=== PATIENT | female | born 1955 | race Caucasian/White ===

== ENCOUNTER 2016-12-22 | Outpatient (CLI) | payer BC | END 2016-12-22 15:33 | disposition home or self-care (01) | DX: R00.2 Palpitations (principal) ==

== ENCOUNTER 2017-01-12 12:37 | Outpatient (CLI) | payer BC | END 2017-01-12 12:38 | disposition home or self-care (01) | DX: R07.9 Chest pain, unspecified (principal); R00.2 Palpitations; R06.02 Shortness of breath; E78.5 Hyperlipidemia, unspecified ==

== ENCOUNTER 2021-02-08 15:49 | Emergency (ER) | payer BC ==
--- OUTSIDE RECORDS SUMMARY | 2021-02-08 15:53 | EXTERNAL MEDICAL SUMMARY RPT | Continuity of Care Document ---
:1955 Demographics Phone Unavailable Preferred Language Unknown Marital Status Unknown Nondenominational Affiliation Unknown Race Unknown Ethnic Group Unknown Author Organization [place] Address [address] [phone] Phone Care Team Providers Name Role Phone PA-C Unavailable Unavailable Problems date description facility 20210205 Acute constipation All 20210205 Constipation, unspecified All 20210205 Never smoker All 20210205 Tobacco smoking status [facility] All 20210205 Tobacco use and exposure All Vital Signs date measurement value source 20210205 BMI 21.40 kg/m2 20210205 BP_diastolic 78 mm[Hg] 04426177 BP_systolic 120 mm[Hg] 20210205 heart_rate 88 /min 20210205 height_metric 163.83 cm 20210205 height_standard 64.5 in 20210205 respiration_rate 14 /min 20210205 temperature_metric 37.17 C 20210205 temperature_standard 98.9 F 20210205 weight_metric 57.24 kg 74998000 weight_standard 126.2 lb Social History date description facility [id number]
[2021-02-08] MEDS ORDERED: SODIUM CHLORIDE 0.9% 1,000 ML IV STA (16:31)
--- NOTE | 2021-02-08 16:32 | ED Physician Documentation ---
PD HPI ABD PAIN - Stated complaint Stated Complaint: CONSTIPATION - Chief complaint Chief Complaint: Abd Pain - History obtained from History obtained from: Patient - Additional information Additional information: 65-year-old woman with no past medical history. Never had a colonoscopy. For unclear reasons, without medication or dietary changes has had obstipation for the last 8 days. Initially tried a variety of fiber supplements without improvement. Subsequently over the last couple of days has tried half a bottle of magnesium citrate and some MiraLAX, still without relief. She also did a fleets enema at home without relief. She feels like it is just stuck. She has mild nausea but no vomiting. No fevers. Review of Systems Ten Systems: 10 systems reviewed and negative Constitutional: reports: Reviewed and negative Eyes: reports: Reviewed and negative Throat: reports: Reviewed and negative Cardiac: reports: Reviewed and negative Respiratory: reports: Reviewed and negative PD PAST MEDICAL HISTORY - Past Surgical History Past Surgical History: No - Present Medications Home Medications: Ambulatory Orders Medication Instructions Recorded Confirmed polyethylene glycoL 3350 [Miralax] 17 gm PO DAILY PRN #1 bottle 02/08/21 - Allergies Allergies/Adverse Reactions: Allergies Allergy/AdvReac Type Severity Reaction Status Date / Time Sulfa (Sulfonamide Allergy Itching Verified 02/08/21 15:56 Antibiotics) - Social History Does the pt smoke?: Yes Smoking Status: Current every day smoker Does the pt drink ETOH?: Yes Does the pt have substance abuse?: No PD ED PE NORMAL - Vitals Vital signs reviewed: Yes - General General: Alert and oriented X 3, No acute distress - Cardiac Cardiac: RRR, No murmur - Respiratory Respiratory: No respiratory distress, Clear bilaterally - Abdomen Abdomen: Other (Slightly hyperactive active bowel tones, slight distention, soft nontender.) - Rectal Rectal: Other (Done with Celia HARVEY present And chaperoning. Scant purulent No fecal impaction within fingers reach) - Derm Derm: Normal color, Warm and dry - Extremities Extremities: No edema, No calf tenderness / cord - Neuro Neuro: Alert and oriented X 3, Normal speech Results - Vitals Vitals: Vital Signs - 24 hr 02/08/21 02/08/21 15:56 18:29 Temperature 36.6 C Heart Rate 80 83 Respiratory 16 16 Rate Blood Pressure 148/71 H 141/79 H O2 Saturation 98 100 Oxygen O2 Source Room air - Labs Labs: Laboratory Tests 02/08/21 02/08/21 16:48 16:48 WBC 5.7 RBC 3.82 L Hgb 13.0 Hct 38.1 MCV 99.7 H MCH 34.0 H MCHC 34.1 RDW 11.5 L Plt Count 274 MPV 9.5 Neut # (Auto) 3.4 Lymph # (Auto) 1.5 [place] # (Auto) 0.6 Eos # (Auto) 0.2 Baso # (Auto) 0.1 Absolute Nucleated RBC 0.00 Nucleated RBC % 0.0 Sodium 140 Potassium 4.5 Chloride 106 Carbon Dioxide 22 Anion Gap 12.0 BUN 11 Creatinine 0.6 Estimated GFR (MDRD) 101 Glucose 87 Calcium 9.8 Total Bilirubin 1.5 H AST 34 ALT 33 Alkaline Phosphatase 102 Total Protein 7.4 Albumin 5.0 Globulin 2.4 Albumin/Globulin Ratio 2.1 PD MEDICAL DECISION MAKING - ED course ED course: 65-year-old woman presents with constipation despite taking some but not a lot of laxatives at home. Benign belly. No fecal impaction on exam. Because of her smoking history and age and no clear cause of this a CT was done without pertinent positive findings but the incidental findings were discussed with her. Departure - Departure Disposition: 01 Home, Self Care Clinical Impression: Constipation Qualifiers: Constipation type: slow transit constipation Qualified Code(s): K59.01 - Slow transit constipation Abdominal pain Qualifiers: Abdominal location: generalized Qualified Code(s): R10.84 - Generalized abdominal pain Condition: Good Record reviewed to determine appropriate education?: Yes Instructions: ED Constipation Prescriptions: polyethylene glycoL 3350 [Miralax] 17 gm PO DAILY PRN #1 bottle PRN Reason: Constipation Comments: I suspect with the medications we gave you you should be well cleaned out. After that you can just take MiraLAX as needed to keep from getting too constipated. Drink plenty of fluids. Return if worsening or if not better over the next couple of days. Talk with your doctor about a referral for routine colonoscopy.
[2021-02-08] MEDS ORDERED: IOPAMIDOL-300 100 ML VIAL ONE (16:37)
--- OUTSIDE RECORDS SUMMARY | 2021-02-08 16:38 | EXTERNAL MEDICAL SUMMARY RPT | Continuity of Care Document ---
:1955 Demographics Phone Unavailable Preferred Language Unknown Marital Status Unknown Caodaism Affiliation Unknown Race Unknown Ethnic Group Unknown Author Organization [place] Address [address] [phone] Phone Care Team Providers Name Role Phone PA-C Unavailable Unavailable Problems date description facility 20210205 Acute constipation All 20210205 Constipation, unspecified All 20210205 Never smoker All 20210205 Tobacco smoking status NHIS All 20210205 Tobacco use and exposure All Vital Signs date measurement value source 20210205 BMI 21.40 kg/m2 20210205 BP_diastolic 78 mm[Hg] 32999124 BP_systolic 120 mm[Hg] 20210205 heart_rate 88 /min 20210205 height_metric 163.83 cm 20210205 height_standard 64.5 in 20210205 respiration_rate 14 /min 20210205 temperature_metric 37.17 C 20210205 temperature_standard 98.9 F 20210205 weight_metric 57.24 kg 20210205 weight_standard 126.2 lb Social History date description facility [id number]
[2021-02-08 17:06] LABS: BASOPHILS # (AUTO) 0.1 10^3/uL (0.0-0.1); BASOPHILS % (AUTO) 1.6 %; EOSINOPHILS # (AUTO) 0.2 10^3/uL (0.0-0.7); HCT - HEMATOCRIT 38.1 % (37.0-47.0); LYMPHOCYTES # (AUTO) 1.5 10^3/uL (1.5-3.5); LYMPHOCYTES % (AUTO) 25.3 %; MEAN CORPUSCULAR HGB CONC 34.1 g/dL (32.0-36.0); MEAN CORPUSCULAR VOLUME 99.7 fL (81.0-99.0); MEAN PLATELET VOLUME 9.5 fL (7.9-10.8); MONOCYTES # (AUTO) 0.6 10^3/uL (0.0-1.0); MONOCYTES % (AUTO) 9.9 %; NEUTROPHILS # (AUTO) 3.4 10^3/uL (1.5-6.6); PLT - PLATELET COUNT 274 10^3/uL (130-450); RED BLOOD COUNT 3.82 10^6/uL (4.20-5.40); RED CELL DISTRIBUTION WIDTH 11.5 % (12.0-15.0); WHITE BLOOD COUNT 5.7 x10^3/uL (4.8-10.8)
[2021-02-08 17:16] LABS: ALBUMIN/GLOBULIN RATIO 2.1 (1.0-2.2); BILIRUBIN,TOTAL 1.5 mg/dL (0.2-1.0); CALCIUM 9.8 mg/dL (8.5-10.3); CREATININE 0.6 mg/dL (0.4-1.0); POTASSIUM 4.5 mmol/L (3.5-5.0); TOTAL PROTEIN 7.4 g/dL (6.7-8.2)
[2021-02-08] MEDS ORDERED: IOPAMIDOL-300 100 ML VIAL IVP ONE (18:12)
--- NOTE | 2021-02-08 18:24 | CT Report ---
PROCEDURE: Abdomen/Pelvis W INDICATIONS: IV only, abdominal pain CONTRAST: IV CONTRAST: Isovue 300 ml: 100 PO CONTRAST: *NO PO CONTRAST TECHNIQUE: After the administration of IV contrast, 5 mm thick sections acquired from the diaphragms to the symp hysis. 5 mm thick coronal and sagittal reformats were acquired. For radiation dose reduction, the f ollowing was used: automated exposure control, adjustment of mA and/or kV according to patient size. COMPARISON: None. FINDINGS: Image quality: Excellent. ABDOMEN: Lung bases: Lung bases are clear. Heart size is normal. Solid organs: Liver and spleen are normal in size and enhancement. Gallbladder is within normal santana its Biliary system is non dilated. Pancreas enhances normally. No adrenal nodules. Kidneys demons trate normal size and enhancement, without hydronephrosis. A nonobstructing 6 mm calculus within the inferior pole left kidney anteriorly is present. Peritoneum and bowel: Bowel loops demonstrate normal wall thickness and caliber. No free fluid or a ir. Normal appendix. Nodes and vessels: No retroperitoneal or mesenteric adenopathy by size criteria. Aorta and inferior vena cava are normal in size. Miscellaneous: No ventral hernias. PELVIS: Genitourinary: Bladder wall thickness is normal. Miscellaneous: No inguinal hernias or adenopathy. Bones: No suspicious bony lesions. No vertebral body compression fractures. IMPRESSION: 1. No acute process. 2. Normal appendix. 3. Nonobstructing left renal calculus. Reviewed by: Jf Oakes MD on 02/08/2021 6:23 PM PDT Approved by: Jf Oakes MD on 02/08/2021 6:23 PM PDT Station ID: [id number]
[2021-02-08 18:30] VITALS: BP 141/79
[2021-02-08] MEDS ORDERED: bisacodyL 5 MG TABLET PO STA (18:33)
[2021-02-08] MEDS ORDERED: LACTULOSE 10 GM /15 ML UDC PO STA (18:33)
[2021-02-08] MEDS ORDERED: MAGNESIUM CITRATE 296 ML BOTTLE PO STA (18:33)
== END 2021-02-08 18:50 | disposition home or self-care (01) ==
LOC: ED 15:49
DX: K59.01 Slow transit constipation (principal); R10.84 Generalized abdominal pain; F17.200 Nicotine dependence, unspecified, uncomplicated
CPT/HCPCS: 36415; 74177; 80053; 85025; 99284; A9270; Q9967

== ENCOUNTER 2021-02-17 13:39 | Emergency (ER) | payer BC ==
--- OUTSIDE RECORDS SUMMARY | 2021-02-17 13:44 | EXTERNAL MEDICAL SUMMARY RPT | Continuity of Care Document ---
:1955 Demographics Phone Unavailable Preferred Language Unknown Marital Status Unknown Orthodoxy Affiliation Unknown Race Unknown Ethnic Group Unknown Author Organization [place] Address [address] [phone] Phone Care Team Providers Name Role Phone David FERRIS, Unavailable Unavailable Booker, Provider Unavailable Unavailable Problems date description facility 20210205 Acute constipation All 20210205 Constipation, unspecified All 20210205 Never smoker All 20210205 Tobacco smoking status NHIS All 20210205 Tobacco use and exposure All Vital Signs date measurement value source 20210205 BMI 21.40 kg/m2 20210205 BP_diastolic 78 mm[Hg] 86626275 BP_systolic 120 mm[Hg] 77036376 heart_rate 88 /min 75194531 height_metric 163.83 cm 41677703 height_standard 64.5 in 68354066 respiration_rate 14 /min 04405487 temperature_metric 37.17 C 20210205 temperature_standard 98.9 F 06885431 weight_metric 57.24 kg 87278923 weight_standard 126.2 lb 66591214 BMI 21.40 kg/m2 90909228 BP_diastolic 78 mm[Hg] 01471513 BP_systolic 120 mm[Hg] 41755295 heart_rate 88 /min 23685649 height_metric 163.83 cm 53908288 height_standard 64.5 in 86664374 respiration_rate 14 /min 70911064 temperature_metric 37.17 C 46738047 temperature_standard 98.9 F 16457852 weight_metric 57.24 kg 96302545 weight_standard 126.2 lb Social History date description facility [id number]
--- OUTSIDE RECORDS SUMMARY | 2021-02-17 13:50 | EXTERNAL MEDICAL SUMMARY RPT | Continuity of Care Document ---
:1955 Demographics Phone Unavailable Preferred Language Unknown Marital Status Unknown Protestant Affiliation Unknown Race Unknown Ethnic Group Unknown Author Organization [place] Address [address] [phone] Phone Care Team Providers Name Role Phone David FERRIS, Unavailable Unavailable Booker, Provider Unavailable Unavailable Problems date description facility 20210205 Acute constipation All 20210205 Constipation, unspecified All 20210205 Never smoker All 20210205 Tobacco smoking status NHIS All 20210205 Tobacco use and exposure All Vital Signs date measurement value source 20210205 BMI 21.40 kg/m2 20210205 BP_diastolic 78 mm[Hg] 33563765 BP_systolic 120 mm[Hg] 88010320 heart_rate 88 /min 27034808 height_metric 163.83 cm 89417782 height_standard 64.5 in 28838449 respiration_rate 14 /min 14947191 temperature_metric 37.17 C 20210205 temperature_standard 98.9 F 66723945 weight_metric 57.24 kg 07303786 weight_standard 126.2 lb 05586920 BMI 21.40 kg/m2 40642365 BP_diastolic 78 mm[Hg] 80460181 BP_systolic 120 mm[Hg] 58359551 heart_rate 88 /min 15109839 height_metric 163.83 cm 30841847 height_standard 64.5 in 81735090 respiration_rate 14 /min 15431306 temperature_metric 37.17 C 65083877 temperature_standard 98.9 F 42381933 weight_metric 57.24 kg 28583547 weight_standard 126.2 lb Social History date description facility [id number]+0000
--- NOTE | 2021-02-17 14:10 | ED Physician Documentation ---
History of Present Illness - Stated complaint Stated Complaint: CONSTIPATION - Chief complaint Chief Complaint: Abd Pain - Additonal information Additional information: 65-year-old female presents to the emergency department for concerns of c onstipation. She reported that for about the last 18 days that she has been constipated. She was seen by my colleague here 9 days ago and found to have a nonimpacted rectal vault. Given her age and previous lack of history of colonoscopy a CT of the abdomen was completed at the last visit that showed no concerning findings. Since discharge the patient has limited her diet to very bland soft foods without a lot of fiber. She is using magnesium citrate every 2 days to promote bowel movements as well as daily MiraLAX. She is having bowel movements but describes them as very small soft and frosting like. She is currently scheduled to have a colonoscopy on 09 March. Patient denies fevers, black or bloody stools, vomiting. She reports that she just feels something is blocked in her and would like to know what. Review of Systems Constitutional: denies: Chills Eyes: reports: Reviewed and negative Ears: reports: Reviewed and negative Nose: reports: Reviewed and negative Throat: reports: Reviewed and negative Cardiac: reports: Reviewed and negative Respiratory: reports: Reviewed and negative GI: reports: Abdominal Pain, Constipation. denies: Nausea, Vomiting, Diarrhea, Bloody / black stool : denies: Dysuria, Frequency, Hesitancy Skin: denies: Rash, Lesions Musculoskeletal: denies: Neck pain PD PAST MEDICAL HISTORY - Past Medical History Past Medical History: Yes Neuro: None - Past Surgical History Past Surgical History: No - Present Medications Home Medications: Ambulatory Orders Medication Instructions Recorded Confirmed polyethylene glycoL 3350 [Miralax] 17 gm PO DAILY PRN #1 bottle 02/08/21 02/17/21 polyethylene glycoL 3350 [Miralax] 17 gm PO DAILY PRN #1 bottle 02/17/21 - Allergies Allergies/Adverse Reactions: Allergies Allergy/AdvReac Type Severity Reaction Status Date / Time Sulfa (Sulfonamide Allergy Itching Verified 02/17/21 13:51 Antibiotics) - Social History Does the pt smoke?: Yes Smoking Status: Current every day smoker Does the pt drink ETOH?: Yes ETOH Use: Wine Does the pt have substance abuse?: No - Immunizations Immunizations are current?: No - POLST Patient has POLST: No PD ED PE EXPANDED - General General: Alert, No acute distress, Well developed/nourished - Cardiac Cardiac: Regular Rate, Radial strong equal, Pedal strong equal, Cap refill < 2 sec - Respiratory Respiratory: Clear to ausultation dalila. No: Distress, Labored - Abdomen Abdomen: Normal Bowel sounds (Soft nontender nonfocal abdomen.). No: Tender to palpation - Rectal Rectal: Hemorrhoid, Normal Tone, Forest Fire Control Officer present, Other (Small amount of soft stool in the rectal vault brown. Nontender exam no masses noted. Thrombosed external hemorrhoids are present.). No: Mass - Back Back: Normal exam - Derm Derm: Normal color, Warm and dry. No: Rash - Neuro Neuro: Alert and Oriented X 3, CNII-XII intact - GCS Eye Opening: Spontaneous Motor: Obeys Commands Verbal: Oriented Total: 15 Results - Vitals Vitals: Vital Signs - 24 hr 02/17/21 13:45 Temperature 36.8 C Heart Rate 78 Respiratory 16 Rate Blood Pressure 136/84 H O2 Saturation 100 Oxygen O2 Source Room air - Labs Labs: Laboratory Tests 02/17/21 02/17/21 14:09 14:09 WBC 5.0 RBC 3.91 L Hgb 13.1 Hct 38.1 MCV 97.4 MCH 33.5 H MCHC 34.4 RDW 11.3 L Plt Count 249 MPV 9.4 Neut # (Auto) 3.1 Lymph # (Auto) 1.1 L [place] # (Auto) 0.5 Eos # (Auto) 0.2 Baso # (Auto) 0.1 Absolute Nucleated RBC 0.00 Nucleated RBC % 0.0 Sodium 134 L Potassium 4.3 Chloride 100 L Carbon Dioxide 21 Anion Gap 13.0 BUN 12 Creatinine 0.5 Estimated GFR (MDRD) 124 Glucose 111 H Calcium 9.9 Total Bilirubin 1.1 H AST 55 H ALT 60 Alkaline Phosphatase 84 Total Protein 7.3 Albumin 5.0 Globulin 2.3 Albumin/Globulin Ratio 2.2 Lipase 30 - Rads (name of study) Abd XR Radiology: Final report received (Bowel gas pattern is normal. Increased stool is seen consistent with constipation.) PD MEDICAL DECISION MAKING - ED course Complexity details: reviewed results, re-evaluated patient ED course: 65-year-old female return to the emergency department for evaluation of constipation. Seen by my colleague 9 days ago for similar at that time had a CT scan performed that did not show any acute findings. She has been taking mag citrate every 2 days as well as MiraLAX but has decreased her fiber intake. She is having bowel movements but describes them as very small soft and frosting like. On exam there was no abdominal tenderness elicited. rectal exam revealed soft stool withotu impaction in the vault. No fevers or vomiting. A KUB x-ray was completed and it is consistent with constipation. Endings were discussed with the patient I recommend that she increase her fiber intake at this time as well as water and continue the MiraLAX. I have advised against overuse of magnesium citrate which I think may be contributing to her symptoms. She is currently scheduled to see a colorist formulator on 09 March. Emergent return precautions were discussed for fevers, suddenly severe abdominal pain uncontrolled vomiting or bloody stools. Departure - Departure Disposition: Home, Self Care Clinical Impression: Constipation Qualifiers: Constipation type: other constipation type Qualified Code(s): K59.09 - Other constipation Condition: Stable Record reviewed to determine appropriate education?: Yes Instructions: ED Constipation Ch Follow-Up: Liz Caraballo ARNP [Primary Care Provider] - Prescriptions: polyethylene glycoL 3350 [Miralax] 17 gm PO DAILY PRN #1 bottle PRN Reason: Constipation Comments: Please continue to follow-up with the colorist formulator as you are already scheduled. I would recommend that you increase your water and fiber intake. Continue to use the MiraLAX. You may use it twice daily. I advised that you do not use the magnesium citrate every other day. If at any point you develop fevers, have suddenly severe abdominal pain bloody bowel movements or uncontrolled vomiting please return immediately to the emergency department.
[2021-02-17 14:15] LABS: BASOPHILS # (AUTO) 0.1 10^3/uL (0.0-0.1); BASOPHILS % (AUTO) 1.8 %; EOSINOPHILS # (AUTO) 0.2 10^3/uL (0.0-0.7); EOSINOPHILS % (AUTO) 3.4 %; HCT - HEMATOCRIT 38.1 % (37.0-47.0); HGB - HEMOGLOBIN 13.1 g/dL (12.0-16.0); LYMPHOCYTES # (AUTO) 1.1 10^3/uL (1.5-3.5); LYMPHOCYTES % (AUTO) 22.2 %; MEAN CORPUSCULAR HEMOGLOBIN 33.5 pg (27.0-31.0); MEAN CORPUSCULAR HGB CONC 34.4 g/dL (32.0-36.0); MEAN CORPUSCULAR VOLUME 97.4 fL (81.0-99.0); MEAN PLATELET VOLUME 9.4 fL (7.9-10.8); MONOCYTES # (AUTO) 0.5 10^3/uL (0.0-1.0); MONOCYTES % (AUTO) 10.6 %; NEUTROPHILS # (AUTO) 3.1 10^3/uL (1.5-6.6); NEUTROPHILS % (AUTO) 61.8 %; PLT - PLATELET COUNT 249 10^3/uL (130-450); RED BLOOD COUNT 3.91 10^6/uL (4.20-5.40); RED CELL DISTRIBUTION WIDTH 11.3 % (12.0-15.0)
[2021-02-17 14:29] LABS: ALBUMIN/GLOBULIN RATIO 2.2 (1.0-2.2); BILIRUBIN,TOTAL 1.1 mg/dL (0.2-1.0); CALCIUM 9.9 mg/dL (8.5-10.3); CREATININE 0.5 mg/dL (0.4-1.0); POTASSIUM 4.3 mmol/L (3.5-5.0); TOTAL PROTEIN 7.3 g/dL (6.7-8.2)
--- NOTE | 2021-02-17 14:30 | XRAY Report ---
PROCEDURE: Abdomen 1 View X-Ray INDICATIONS: constipation TECHNIQUE: 1 view of the abdomen were acquired. COMPARISON: Abdominal CT dated 02/08/2021 FINDINGS: Surgical changes and devices: None. Bowel: No pneumoperitoneum. The bowel gas pattern is normal. Increased stool is seen consistent wi th constipation. Soft tissues: No masses; visualized solid organ contours appear normal in size. No suspicious abdom inal calcifications. Bones: No suspicious bony abnormalities. IMPRESSION: Constipation. Reviewed by: Sinan Farris on 02/17/2021 2:29 PM PDT Approved by: Sinan Farris on 02/17/2021 2:29 PM PDT Station ID: [id number]
[2021-02-17 14:48] VITALS: BP 142/63
== END 2021-02-17 14:53 | disposition home or self-care (01) ==
LOC: ED 13:39
DX: K59.09 Other constipation (principal); K64.5 Perianal venous thrombosis; F17.200 Nicotine dependence, unspecified, uncomplicated
CPT/HCPCS: 36415; 80053; 83690; 85025; 99284

== ENCOUNTER 2021-12-02 14:05 | Outpatient (CLI) | payer BC ==
--- NOTE | 2021-12-02 15:47 | XRAY Report ---
PROCEDURE: Cervical Spine 2 View INDICATIONS: CERVICALGIA TECHNIQUE: 3 view(s) of the cervical spine were acquired. COMPARISON: None. FINDINGS: C-SPINE: No acute, displaced fracture or malalignment. The vertebral body heights are maintained. Mil d disc height loss at C5-C7 with prominent endplate osteophytosis. Uncovertebral/facet arthrosis is s een. SOFT TISSUES: No prevertebral soft tissue thickening. IMPRESSION: 1.Cervical spine degeneration as detailed above. Reviewed by: Yariel Taylor MD on 12/02/2021 3:46 PM PST Approved by: Yariel Taylor MD on 12/02/2021 3:46 PM PST Station ID: [id number]
--- NOTE | 2021-12-02 16:00 | XRAY Report ---
PROCEDURE: Lumbar Spine 2 View INDICATIONS: LOW BACK PAIN TECHNIQUE: 2 views of the lumbar spine were acquired. COMPARISON: Reference is made to the CT abdomen and pelvis dated September 07, 2016 FINDINGS: L-SPINE: No acute displaced fracture or malalignment. The vertebral body heights are maintained. 5 n onrib-bearing vertebrae. Moderate disc height loss with endplate osteophytosis at L3-5. Articulation of the spinous processes of the lumbar spine. Facet arthrosis, most prominent at L4-5. The sacroiliac joints appear patent. SOFT TISSUES: No focal abnormality. IMPRESSION: 1.Lumbar spine degeneration as detailed above. Reviewed by: Yariel Taylor MD on 12/02/2021 3:58 PM PST Approved by: Yariel Taylor MD on 12/02/2021 3:58 PM PST Station ID: [id number]
--- NOTE | 2021-12-02 16:21 | XRAY Report ---
PROCEDURE: Thoracic Spine 2 View INDICATIONS: BACK PAIN TECHNIQUE: 3 views of the thoracic spine were acquired. COMPARISON: None. FINDINGS: Bones: No fractures or dislocations. No suspicious bony lesions. Visualized ribs are intact. Multil evel disc space narrowing and endplate osteophyte formation. Soft tissues: No paravertebral stripe thickening. IMPRESSION: Multilevel degenerative disc disease. No acute fracture. No osseous lesion. If symptoms and/or clinic al suspicion for pathology continue, further assessment with repeat plain films, or advanced imaging (e.g., CT, MRI, or bone scan) is recommended for further assessment. Reviewed by: Jf Oakes MD on 12/02/2021 4:20 PM PST Approved by: Jf Oakes MD on 12/02/2021 4:20 PM PST Station ID: [id number]
== END 2021-12-02 14:06 | disposition home or self-care (01) ==
LOC: DI.S 14:05
PROVIDERS: ATTEND Registered Nurse
DX: M51.34 Other intervertebral disc degeneration, thoracic region (principal); M47.816 Spondylosis without myelopathy or radiculopathy, lumbar region; M51.36 Other intervertebral disc degeneration, lumbar region; M47.812 Spondylosis without myelopathy or radiculopathy, cervical region; M50.322 Other cervical disc degeneration at C5-C6 level

== ENCOUNTER 2022-09-13 13:12 | Emergency (ER) | payer BC ==
--- NOTE | 2022-09-13 13:36 | XRAY Report ---
PROCEDURE: Chest 1 View X-Ray INDICATIONS: Chest pain TECHNIQUE: One view of the chest was acquired. COMPARISON: None. FINDINGS: Surgical changes and devices: None. Lungs and pleura: No pleural effusions or pneumothorax. Lungs are clear. Mediastinum: Mediastinal contours appear normal. Heart size is normal. Bones and chest wall: No suspicious bony lesions. Overlying soft tissues appear unremarkable. IMPRESSION: No acute pulmonary process. Reviewed by: Lorri Patrick MD on 09/13/2022 1:35 PM [facility] Approved by: Lorri Patrick MD on 09/13/2022 1:35 PM [facility] Station ID: [id number]
[2022-09-13 13:41] LABS: BASOPHILS # (AUTO) 0.1 10^3/uL (0.0-0.1); BASOPHILS % (AUTO) 2.2 %; EOSINOPHILS # (AUTO) 0.2 10^3/uL (0.0-0.7); EOSINOPHILS % (AUTO) 3.6 %; HCT - HEMATOCRIT 38.6 % (37.0-47.0); HGB - HEMOGLOBIN 13.2 g/dL (12.0-16.0); LYMPHOCYTES # (AUTO) 1.2 10^3/uL (1.5-3.5); LYMPHOCYTES % (AUTO) 22.4 %; MEAN CORPUSCULAR HEMOGLOBIN 32.8 pg (27.0-31.0); MEAN CORPUSCULAR HGB CONC 34.2 g/dL (32.0-36.0); MEAN CORPUSCULAR VOLUME 95.8 fL (81.0-99.0); MONOCYTES # (AUTO) 0.5 10^3/uL (0.0-1.0); MONOCYTES % (AUTO) 9.6 %; NEUTROPHILS # (AUTO) 3.4 10^3/uL (1.5-6.6); PLT - PLATELET COUNT 282 10^3/uL (130-450); RED BLOOD COUNT 4.03 10^6/uL (4.20-5.40); RED CELL DISTRIBUTION WIDTH 11.9 % (12.0-15.0); WHITE BLOOD COUNT 5.5 x10^3/uL (4.8-10.8)
[2022-09-13 13:55] LABS: ALBUMIN 4.7 g/dL (3.2-5.5); BILIRUBIN,TOTAL 1.3 mg/dL (0.2-1.0); CALCIUM 9.7 mg/dL (8.5-10.3); CREATININE 0.6 mg/dL (0.4-1.0); POTASSIUM 4.4 mmol/L (3.5-5.0); TOTAL PROTEIN 7.1 g/dL (6.7-8.2)
--- NOTE | 2022-09-13 14:27 | ED Physician Documentation ---
PD HPI CHEST PAIN - Stated complaint Stated Complaint: ANXIETY/SOA - Chief complaint Chief Complaint: Cardiac - History obtained from History obtained from: Patient - Additional information Additional information: 66-year-old woman with no known history of coronary disease, she does have mild hyperlipidemia and a history of tobacco abuse in remission. For the last 6 days she has had intermittent chest pressure. It is worse with exertion and she feels short of breath with it. She feels numbness or radiation to the left arm. She always has some level of pressure but it is very mild at this juncture. She denies pedal edema or calf pain but has had some left thigh pain for the last few days. No recent travel. Review of Systems Ten Systems: 10 systems reviewed and negative Cardiac: reports: Chest pain / pressure, Palpitations. denies: Pedal edema Respiratory: reports: Dyspnea. denies: Cough PD PAST MEDICAL HISTORY - Past Medical History Neuro: None - Past Surgical History Past Surgical History: No - Present Medications Home Medications: Ambulatory Orders Medication Instructions Recorded Confirmed No Known Home Medications 09/13/22 09/13/22 - Allergies Allergies/Adverse Reactions: Allergies Allergy/AdvReac Type Severity Reaction Status Date / Time Sulfa (Sulfonamide Allergy Itching Verified 09/13/22 13:24 Antibiotics) - Social History Does the pt smoke?: No Smoking Status: Former smoker Does the pt drink ETOH?: Yes Does the pt have substance abuse?: No - Immunizations Immunizations are current?: No - POLST Patient has POLST: No PD ED PE NORMAL - Vitals Vital signs reviewed: Yes - General General: Alert and oriented X 3, No acute distress - HEENT HEENT: PERRL, EOMI - Neck Neck: Supple, no meningeal sign, No bony TTP - Cardiac Cardiac: RRR, No murmur - Respiratory Respiratory: No respiratory distress, Clear bilaterally - Abdomen Abdomen: Normal bowel sounds, Soft, Non tender - Back Back: No CVA TTP, No spinal TTP - Derm Derm: Normal color, Warm and dry - Extremities Extremities: No edema, No calf tenderness / cord - Neuro Neuro: Alert and oriented X 3, Normal speech Results - Vitals Vitals: Vital Signs - 24 hr 09/13/22 09/13/22 13:19 14:54 Temperature 37.5 C Heart Rate 81 74 Respiratory 16 16 Rate Blood Pressure 160/82 H 165/96 H O2 Saturation 99 100 Oxygen O2 Source Room air - EKG (time done) 1323 Rate: Rate (enter#) (79) Rhythm: NSR, LAE Grant: Normal Intervals: Normal ID QRS: Normal Ischemia: Normal ST segments - Labs Labs: Laboratory Tests 09/13/22 09/13/22 09/13/22 13:37 13:37 13:37 WBC 5.5 RBC 4.03 L Hgb 13.2 Hct 38.6 MCV 95.8 MCH 32.8 H MCHC 34.2 RDW 11.9 L Plt Count 282 MPV 9.0 Neut # (Auto) 3.4 Lymph # (Auto) 1.2 L Orange # (Auto) 0.5 Eos # (Auto) 0.2 Baso # (Auto) 0.1 Absolute Nucleated RBC 0.00 Nucleated RBC % 0.0 D-Dimer Sodium 132 L Potassium 4.4 Chloride 97 L Carbon Dioxide 24 Anion Gap 11.0 BUN 14 Creatinine 0.6 Estimated GFR (MDRD) 100 Glucose 176 H Calcium 9.7 Total Bilirubin 1.3 H AST 33 ALT 23 Alkaline Phosphatase 105 Troponin I High Sens 3.0 Total Protein 7.1 Albumin 4.7 Globulin 2.4 Albumin/Globulin Ratio 2.0 Lipase 33 09/13/22 14:30 WBC RBC Hgb Hct MCV MCH MCHC RDW Plt Count MPV Neut # (Auto) Lymph # (Auto) Orange # (Auto) Eos # (Auto) Baso # (Auto) Absolute Nucleated RBC Nucleated RBC % D-Dimer < 200.0 L Sodium Potassium Chloride Carbon Dioxide Anion Gap BUN Creatinine Estimated GFR (MDRD) Glucose Calcium Total Bilirubin AST ALT Alkaline Phosphatase Troponin I High Sens Total Protein Albumin Globulin Albumin/Globulin Ratio Lipase PD MEDICAL DECISION MAKING - ED course ED course: 66-year-old woman with atypical but some exertional component to chest pain for the better part of a week, she still has chest pressure even now so initial troponin should be predictive, also checked a D-dimer as she has some left thigh pain and that was negative. Chest x-ray unremarkable. Discussed with her that she would need close follow-up for stress testing and should return for recurrent pain. Departure - Departure Disposition: 01 Home, Self Care Clinical Impression: Atypical chest pain Condition: Good Record reviewed to determine appropriate education?: Yes Instructions: ED Chest Pain Atypical Unkn Cause Comments: Today we checked an EKG, troponin level, D-dimer, and chest x-ray, all of which did not suggest anything serious going on. That said it is hard to completely rule out the cardiac cause of your pain and asked that she need to follow-up with your primary care physician and discuss stress testing. If you develop recurrent pain please return for reevaluation. Take a baby aspirin a day until told otherwise by your physician. Discharge Date/Time: 09/13/22 14:59
[2022-09-13 14:55] VITALS: BP 165/96
== END 2022-09-13 14:59 | disposition home or self-care (01) ==
LOC: ED 13:12
DX: R07.89 Other chest pain (principal); E78.5 Hyperlipidemia, unspecified; Z87.891 Personal history of nicotine dependence
CPT/HCPCS: 36415; 80053; 83690; 84484; 85025; 85379; 93005; 99281; 99284

== ENCOUNTER 2022-09-19 14:51 | Outpatient (CLI) | payer BC ==
--- NOTE | 2022-09-19 16:33 | CT Report ---
PROCEDURE: HEAD WO INDICATIONS: HEADACHE TECHNIQUE: Noncontrast 4.5 mm thick angled axial sections acquired from the foramen magnum to the vertex. For r adiation dose reduction, the following was used: automated exposure control, adjustment of mA and/or kV according to patient size. COMPARISON: CT sinuses 12/28/2013, MRI brain 05/09/2013 FINDINGS: Image quality: Excellent. CSF spaces: Basal cisterns are patent. No extra-axial fluid collections. Ventricles are normal in size and shape. Brain: No midline shift. No intracranial masses or hemorrhage. Lindo-white matter interface is norm al. Skull and face: Calvarium and visualized facial bones are intact. There is a 1.7 x 2.4 cm partially calcified mass extending from the scalp soft tissues in the right frontal region. There is no adjacen t osseous erosion. This is increased in size from 2013 exam at which time it measured 1.4 x 1.2 cm. Sinuses: Visualized sinuses and mastoids are clear. IMPRESSION: 1. No acute intracranial process. 2. Mass extending from the right scalp soft tissues with apparent areas of calcification. No adjacent osseous erosion. It has markedly increased in size compared to 2013. This could represent a sebaceou s cyst. However, other etiologies cannot be excluded. Further evaluation with direct visualization an d/or biopsy is recommended. Reviewed by: Lorri Patrick MD on 09/19/2022 4:31 PM PST Approved by: Lorri Patrick MD on 09/19/2022 4:31 PM [facility] Station ID: [id number]
--- NOTE | 2022-09-19 20:35 | Ultrasound Report ---
PROCEDURE: Head or Neck Soft Tissue INDICATIONS: NECK MASS TECHNIQUE: Real time scanning was performed of the neck region of interest, with image documentation . COMPARISON: None. FINDINGS: Limited ultrasound of the left neck was performed in the region of subjective palpable lump . No cystic or solid mass was noted in this area. Of note, the patient could not palpate the lump at the time of the exam. IMPRESSION: Negative targeted ultrasound in the region of subjective palpable lump in the left neck. Reviewed by: Yahir Anne MD on 09/19/2022 8:34 PM PST Approved by: Yahir Anne MD on 09/19/2022 8:34 PM PST Station ID: [id number]
== END 2022-09-19 14:52 | disposition home or self-care (01) ==
LOC: DI 14:51
PROVIDERS: ATTEND Registered Nurse
DX: G44.209 Tension-type headache, unspecified, not intractable (principal); R22.1 Localized swelling, mass and lump, neck; R09.81 Nasal congestion; R22.0 Localized swelling, mass and lump, head

== ENCOUNTER 2023-01-18 12:54 | Outpatient (CLI) | payer BC | END 2023-01-18 12:55 | disposition home or self-care (01) | LOC: RT 12:54 | PROVIDERS: ATTEND Nurse Practitioner Family | DX: R06.00 Dyspnea, unspecified (principal) | CPT/HCPCS: 94010 ==

== ENCOUNTER 2024-01-20 13:02 | Outpatient (CLI) | payer BC ==
--- NOTE | 2024-01-20 18:23 | Ultrasound Report ---
PROCEDURE: Abdomen Complete INDICATIONS: ABD PAIN TECHNIQUE: Real-time scanning was performed of the abdominal and retroperitoneal organs, with image documentatio n. COMPARISON: CT of abdomen and pelvis dated 02/08/2021. FINDINGS: Liver: Liver is normal in size. Increased liver parenchymal echotexture is seen. Gallbladder: There is no gallstone. No gallbladder wall thickening or pericholecystic fluid. No sonog raphic Nassar's sign. Biliary ducts: Intrahepatic bile ducts are non-dilated. Extrahepatic bile duct caliber measures 4 m m. Normal is 6-7 mm or less in diameter, or 10 mm or less post-cholecystectomy. Pancreas: Visualized portions of the pancreas are sonographically normal. Spleen: Spleen is normal in size and homogeneous in echotexture. Kidneys: Kidneys are normal in size and echotexture. Right kidney measures 9.9 cm long; left kidney measures 11.4 cm long. No hydronephrosis. 8 x 7 x 6 mm echogenic structure with through acoustic sh adowing is noted in mid to lower pole left kidney. No solid masses. No complex renal cystic lesions w hich require follow-up. Aorta: Visualized aorta is normal in caliber at less than 3 cm. Iliacs: Proximal common iliac arteries are normal in caliber at less than 2.5 cm. IVC: Intrahepatic inferior vena cava is patent. Miscellaneous: No free abdominal fluid. IMPRESSION: 1. Hepatic steatosis, no discrete hepatic lesion. 2. Nonobstructive left renal stone. No hydronephrosis. No solid-appearing renal lesion. 3. Rest of the exam is unremarkable. Reviewed by: Rupreto Blood MD on 01/20/2024 6:21 PM PDT Approved by: Ruperto Blood MD on 01/20/2024 6:21 PM PDT Station ID: [id number]
== END 2024-01-20 13:03 | disposition home or self-care (01) ==
LOC: DI 13:02
PROVIDERS: ATTEND Nurse Practitioner Family
DX: N20.0 Calculus of kidney (principal); K76.0 Fatty (change of) liver, not elsewhere classified

== ENCOUNTER 2024-01-29 09:46 | Emergency (ER) | payer BC ==
[2024-01-29 10:35] LABS: BASOPHILS # (AUTO) 0.1 10^3/uL (0.0-0.1); BASOPHILS % (AUTO) 2.4 %; EOSINOPHILS # (AUTO) 0.2 10^3/uL (0.0-0.7); EOSINOPHILS % (AUTO) 4.3 %; HCT - HEMATOCRIT 39.2 % (37.0-47.0); HGB - HEMOGLOBIN 13.4 g/dL (12.0-16.0); LYMPHOCYTES # (AUTO) 0.8 10^3/uL (1.5-3.5); LYMPHOCYTES % (AUTO) 17.1 %; MEAN CORPUSCULAR HEMOGLOBIN 32.9 pg (27.0-31.0); MEAN CORPUSCULAR HGB CONC 34.2 g/dL (32.0-36.0); MEAN CORPUSCULAR VOLUME 96.3 fL (81.0-99.0); MEAN PLATELET VOLUME 8.6 fL (7.9-10.8); MONOCYTES # (AUTO) 0.4 10^3/uL (0.0-1.0); MONOCYTES % (AUTO) 8.2 %; NEUTROPHILS # (AUTO) 3.3 10^3/uL (1.5-6.6); NEUTROPHILS % (AUTO) 67.8 %; PLT - PLATELET COUNT 269 10^3/uL (130-450); RED BLOOD COUNT 4.07 10^6/uL (4.20-5.40); RED CELL DISTRIBUTION WIDTH 11.6 % (12.0-15.0); WHITE BLOOD COUNT 4.9 x10^3/uL (4.8-10.8)
[2024-01-29 10:45] LABS: ALBUMIN 4.9 g/dL (3.2-5.5); ALBUMIN/GLOBULIN RATIO 2.6 (1.0-2.2); BILIRUBIN,TOTAL 0.8 mg/dL (0.2-1.0); CREATININE 0.6 mg/dL (0.6-1.3); POTASSIUM 4.1 mmol/L (3.5-4.5); TOTAL PROTEIN 6.8 g/dL (6.4-8.9)
[2024-01-29 10:49] LABS: BILIRUBIN,URINE NEGATIVE (NEGATIVE); GLUCOSE, URINE (UA) NEGATIVE (NEGATIVE); KETONES,URINE (UA) TRACE mg/dL (NEGATIVE); LEUKOCYTE ESTERASE, URINE NEGATIVE (NEGATIVE); NITRITE,URINE NEGATIVE (NEGATIVE); OCCULT BLOOD,URINE NEGATIVE (NEGATIVE); PROTEIN,URINE NEGATIVE (NEGATIVE); UROBILINOGEN,URINE 0.2 (NORMAL) E.U./dL (NORMAL)
[2024-01-29 10:55] LABS: CLARITY,URINE CLEAR (CLEAR)
[2024-01-29] MEDS ORDERED: iohexoL-300 100 ML VIAL ONE (11:09)
--- NOTE | 2024-01-29 12:01 | CT Report ---
PROCEDURE: Abdomen/Pelvis WO INDICATIONS: lower abd pain/constipation TECHNIQUE: A CT scan of the abdomen and pelvis was performed without the use of intravenous contrast. Images we re recorded and evaluated at appropriate window settings. Reformats: coronal and sagittal. For radiat ion dose reduction, the following was used: automated exposure control, adjustment of mA and/or kV ac cording to patient size. COMPARISON: Ultrasound abdomen 01/20/2024, CT abdomen pelvis 02/08/2021 FINDINGS: Image quality: Diagnostic. Lower chest: Unremarkable. Liver: No contour-deforming mass. Gallbladder and biliary tree: Unremarkable. Spleen: No splenomegaly. Pancreas: No pancreatic ductal dilation. Adrenals: No adrenal nodule. Kidneys and ureters: No hydronephrosis. Unchanged inferior pole left renal calculus measuring approxi mately 6 mm, Hounsfield units to 41.. Stomach, bowel and peritoneum: No bowel distension. No obstruction. Minimal to mild scattered stool. No pathologic free fluid. Colonic diverticula are present without associated inflammatory change. Lymph nodes: No central or retroperitoneal adenopathy. Vessels: No infrarenal aortic aneurysm. PELVIS Reproductive organs: Unremarkable. Bladder: No wall thickness, accounting for underdistention. Pelvic lymph nodes: No pelvic adenopathy by size criteria. Bones: No aggressive osseous abnormality. Other: No significant ventral or inguinal hernia. IMPRESSION: Diverticulosis. No obstruction. Reviewed by: Lorri Patrick MD on 01/29/2024 12:00 PM PDT Approved by: Lorri Ptarick MD on 01/29/2024 12:00 PM PDT Station ID: [id number]
--- NOTE | 2024-01-29 12:32 | ED Physician Documentation ---
PD HPI ABD PAIN - Stated complaint Stated Complaint: - Chief complaint Chief Complaint: Abd Pain - History obtained from History obtained from: Patient - Additional information Additional information: Patient is a 68-year-old female presenting for evaluation of constipation. Patient states that she has had an issue with constipation since mid December and has been trying herbal remedies and having some loose stools but does not feel like she has had a good bowel movement which she normally has twice a day. She denies fever, vomiting. No fever, chest pain or shortness of air. Denies blood in any stools. She denies history of prior abdominal surgeries. She does report having intermittent episodes of lower abdominal pain. She was told in the past that she has a fatty liver as well as a stone in her kidney. She denies having hematuria, flank pain. She did make an appointment with her GI doctor in [place] but this is not until next month and was directed to come to the emergency department for evaluation regarding her current symptoms. Review of Systems Constitutional: denies: Fever Cardiac: denies: Chest pain / pressure Respiratory: denies: Dyspnea GI: reports: Abdominal Pain, Constipation. denies: Vomiting, Diarrhea : denies: Dysuria, Hematuria PD PAST MEDICAL HISTORY - Past Medical History Past Medical History: Yes Cardiovascular: None Respiratory: None Neuro: None Endocrine/Autoimmune: None GI: None MILITARY TECHNICIAN: None : None HEENT: None Psych: None Musculoskeletal: None Derm: None - Past Surgical History Past Surgical History: No - Present Medications Home Medications: Ambulatory Orders Medication Instructions Recorded Confirmed No Known Home Medications 09/13/22 09/13/22 - Allergies Allergies/Adverse Reactions: Allergies Allergy/AdvReac Type Severity Reaction Status Date / Time Sulfa (Sulfonamide Allergy Itching Verified 01/29/24 10:09 Antibiotics) - Social History Does the pt smoke?: Yes Smoking Status: Current every day smoker Does the pt drink ETOH?: Yes Does the pt have substance abuse?: No - Immunizations Immunizations are current?: No - POLST Patient has POLST: No PD ED PE NORMAL - General General: Alert and oriented X 3, No acute distress, Well developed/nourished - HEENT HEENT: Atraumatic, Moist mucous membranes, Pharynx benign - Neck Neck: Supple, no meningeal sign - Cardiac Cardiac: RRR, Strong equal pulses - Respiratory Respiratory: No respiratory distress, Clear bilaterally - Abdomen Abdomen: Normal bowel sounds, Soft, Non distended, Other (Mild lower abdominal tenderness bilaterally, no rebound, no mass) - Derm Derm: Warm and dry - Neuro Neuro: Normal speech Results - Vitals Vitals: Vital Signs - 24 hr 01/29/24 01/29/24 01/29/24 10:04 11:30 12:35 Temperature 36.4 C L Heart Rate 84 77 71 Respiratory 20 20 148 H Rate Blood Pressure 145/66 H 148/87 H 148/77 H O2 Saturation 98 99 98 Oxygen O2 Source Room air - Labs Labs: Laboratory Tests 01/29/24 01/29/24 01/29/24 10:28 10:28 10:40 WBC 4.9 RBC 4.07 L Hgb 13.4 Hct 39.2 MCV 96.3 MCH 32.9 H MCHC 34.2 RDW 11.6 L Plt Count 269 MPV 8.6 Neut # (Auto) 3.3 Lymph # (Auto) 0.8 L [place] # (Auto) 0.4 Eos # (Auto) 0.2 Baso # (Auto) 0.1 Absolute Nucleated RBC 0.00 Nucleated RBC % 0.0 Sodium 132 L Potassium 4.1 Chloride 97 L Carbon Dioxide 26 Anion Gap 9.0 BUN 6 Creatinine 0.6 Estimated GFR (MDRD) 100 Glucose 92 Calcium 10.0 Total Bilirubin 0.8 AST 22 ALT 22 Alkaline Phosphatase 87 Total Protein 6.8 Albumin 4.9 Globulin 1.9 L Albumin/Globulin Ratio 2.6 H Lipase 26 Urine Color YELLOW Urine Clarity CLEAR Urine pH 7.0 Ur Specific [place] <=1.005 Urine Protein NEGATIVE Urine Glucose (UA) NEGATIVE Urine Ketones TRACE Urine Occult Blood NEGATIVE Urine Nitrite NEGATIVE Urine Bilirubin NEGATIVE Urine Urobilinogen 0.2 (NORMAL) Ur Leukocyte Esterase NEGATIVE Ur Microscopic Review NOT INDICATED Urine Culture Comments NOT INDICATED PD Medical Decision Making - ED course Complexity details: reviewed results, d/w patient ED course: Patient is a 68-year-old female presenting for evaluation of feelings of constipation and lower abdominal discomfort that have been intermittent for the past several weeks. She reports trying herbal remedies at home for her constipation and has had some loose stooling but does not feel like she has had a good bowel movement in a few weeks. She does have a GI in [place] to that she has seen in the past but does not have an appointment until next month and so was directed to the ER for evaluation. She has mild tenderness noted on exam but No rebound or no guarding.CBC, chemistries, urinalysis were obtained and reviewed and without significant findings. Sodium is 132 which is similar to prior results from a few years ago. CT scan of the abdomen and pelvis was obtained. No signs of a bowel obstruction and the radiology comments Only minimal to mild Scattered stool.Urine does not suggest infection. She otherwise denies associated symptoms such as nausea, vomiting, decreased appetite or fevers. Instructed patient that I do not believe she needs to try further remedies at this time to induce a bowel movement based on the stool burden seen and should continue to have close follow-up with her GI doctor. Patient advised on concerning symptoms to return for. Departure - Departure Disposition: 01 Home, Self Care Clinical Impression: Lower abdominal pain Instructions: ED Abdominal Pain Female Non-Specific Abdominal Pain Comments: Your Lab testing and CT scan today do not show any significant abnormalities. We also do not have a significant amount of stool burden and I do not think you need any further home treatments to try and force a bowel movement. I would recommend keeping her appointment for follow-up with your GI doctor in [place]. In the meanwhile please follow-up with your primary care doctor regarding your symptoms. Return to the ER with any worsening such as vomiting, Worsening pain or any other concerns. Forms: PCP List Discharge Date/Time: 01/29/24 12:40
[2024-01-29 12:40] VITALS: BP 148/77; O2SAT 98
== END 2024-01-29 12:40 | disposition home or self-care (01) ==
LOC: ED 09:46
DX: R10.30 Lower abdominal pain, unspecified (principal); F17.200 Nicotine dependence, unspecified, uncomplicated
CPT/HCPCS: 36415; 80053; 81001; 81003; 83690; 85025; 87086; 99283; 99284